=== PATIENT | female | born 1980 | race Caucasian/White ===

== ENCOUNTER 2019-08-27 09:28 | Outpatient (CLI) | payer BC ==
[2019-08-27 17:43] LABS: BASOPHILS # (AUTO) 0.1 10^3/uL (0.0-0.1); BASOPHILS % (AUTO) 1.2 %; EOSINOPHILS # (AUTO) 0.1 10^3/uL (0.0-0.7); HGB - HEMOGLOBIN 12.9 g/dL (12.0-16.0); LYMPHOCYTES # (AUTO) 1.9 10^3/uL (1.5-3.5); LYMPHOCYTES % (AUTO) 37.4 %; MEAN CORPUSCULAR HEMOGLOBIN 27.9 pg (27.0-31.0); MEAN CORPUSCULAR HGB CONC 30.5 g/dL (32.0-36.0); MEAN CORPUSCULAR VOLUME 91.6 fL (81.0-99.0); MEAN PLATELET VOLUME 12.5 fL (7.9-10.8); MONOCYTES # (AUTO) 0.3 10^3/uL (0.0-1.0); MONOCYTES % (AUTO) 6.5 %; NEUTROPHILS # (AUTO) 2.7 10^3/uL (1.5-6.6); NEUTROPHILS % (AUTO) 52.7 %; PLT - PLATELET COUNT 200 10^3/uL (130-450); RED BLOOD COUNT 4.62 10^6/uL (4.20-5.40); RED CELL DISTRIBUTION WIDTH 13.3 % (12.0-15.0); WHITE BLOOD COUNT 5.1 x10^3/uL (4.8-10.8)
[2019-08-27 18:20] LABS: % IRON SATURATION 33 % (20-50); ALBUMIN 4.5 g/dL (3.2-5.5); ALBUMIN/GLOBULIN RATIO 1.9 (1.0-2.2); ALKALINE PHOSPHATASE 41 IU/L (42-121); ALT ALANINE AMINOTRANSFERASE 15 IU/L (10-60); AST ASPARTATE AMINOTRANSFERASE 17 IU/L (10-42); BILIRUBIN,TOTAL 0.9 mg/dL (0.2-1.0); BUN - BLOOD UREA NITROGEN 12 mg/dL (6-20); CALCIUM 8.8 mg/dL (8.5-10.3); CARBON DIOXIDE - CO2 26 mmol/L (21-32); CHLORIDE 104 mmol/L (101-111); CHOL/HDL RATIO 2.4 (<4.4); CHOLESTEROL 146 mg/dL; CREATININE 0.8 mg/dL (0.4-1.0); GFR - MDRD 81 (>89); GLUCOSE 84 mg/dL (70-100); HDL CHOLESTEROL 60 mg/dL; IRON 103 ug/dL (28-170); SODIUM 141 mmol/L (135-145); TOTAL IRON BINDING CAPACITY 314 ug/dL (250-450); TOTAL PROTEIN 6.9 g/dL (6.7-8.2); TRANSFERRIN 224 mg/dL (192-382)
[2019-08-27 18:26] LABS: FERRITIN 41.6 ng/mL (11.0-306.8)
== END 2019-08-27 09:29 | disposition home or self-care (01) ==
LOC: LAB.S 09:28
PROVIDERS: ATTEND Registered Nurse
DX: Z00.00 Encounter for general adult medical examination without abnormal findings (principal); R42 Dizziness and giddiness; Z86.2 Personal history of diseases of the blood and blood-forming organs and certain disorders involving the immune mechanism
CPT/HCPCS: 36415; 80053; 80061; 82728; 83540; 83721; 84443; 84466; 85025

== ENCOUNTER 2020-02-12 10:00 | Outpatient (CLI) | payer BC | END 2020-02-12 23:59 | disposition home or self-care (01) | LOC: COV 10:00 | PROVIDERS: ATTEND Family Medicine | DX: J02.9 Acute pharyngitis, unspecified (principal); R09.81 Nasal congestion ==

== ENCOUNTER 2020-07-24 10:27 | Outpatient (CLI) | payer BC | END 2020-07-24 10:28 | disposition home or self-care (01) | LOC: COV 10:27 | PROVIDERS: ATTEND Family Medicine | DX: R05 Cough (principal); R53.83 Other fatigue; R07.0 Pain in throat; R09.81 Nasal congestion; J34.89 Other specified disorders of nose and nasal sinuses; Z20.828 Contact with and (suspected) exposure to other viral communicable diseases ==

== ENCOUNTER 2020-12-15 10:21 | Outpatient (CLI) | payer BC ==
[2020-12-15 14:28] LABS: BASOPHILS # (AUTO) 0.1 10^3/uL (0.0-0.1); EOSINOPHILS # (AUTO) 0.1 10^3/uL (0.0-0.7); EOSINOPHILS % (AUTO) 1.2 %; HGB - HEMOGLOBIN 13.6 g/dL (12.0-16.0); LYMPHOCYTES # (AUTO) 1.6 10^3/uL (1.5-3.5); LYMPHOCYTES % (AUTO) 32.7 %; MEAN CORPUSCULAR HEMOGLOBIN 29.7 pg (27.0-31.0); MEAN CORPUSCULAR HGB CONC 32.4 g/dL (32.0-36.0); MEAN CORPUSCULAR VOLUME 91.7 fL (81.0-99.0); MEAN PLATELET VOLUME 11.7 fL (7.9-10.8); MONOCYTES # (AUTO) 0.4 10^3/uL (0.0-1.0); MONOCYTES % (AUTO) 8.4 %; NEUTROPHILS # (AUTO) 2.8 10^3/uL (1.5-6.6); NEUTROPHILS % (AUTO) 56.5 %; PLT - PLATELET COUNT 197 10^3/uL (130-450); RED BLOOD COUNT 4.58 10^6/uL (4.20-5.40); RED CELL DISTRIBUTION WIDTH 12.8 % (12.0-15.0); WHITE BLOOD COUNT 4.9 x10^3/uL (4.8-10.8)
[2020-12-15 14:44] LABS: ALBUMIN 4.5 g/dL (3.2-5.5); ALBUMIN/GLOBULIN RATIO 1.7 (1.0-2.2); BILIRUBIN,TOTAL 0.8 mg/dL (0.2-1.0); CALCIUM 9.2 mg/dL (8.5-10.3); CREATININE 0.7 mg/dL (0.4-1.0); POTASSIUM 4.1 mmol/L (3.5-5.0); TOTAL PROTEIN 7.2 g/dL (6.7-8.2)
[2020-12-15 14:55] LABS: THYROID STIMULATING HORMONE 0.8 uIU/mL (0.34-5.60)
== END 2020-12-15 10:22 | disposition home or self-care (01) ==
LOC: LAB.S 10:21
PROVIDERS: ATTEND Registered Nurse
DX: R42 Dizziness and giddiness (principal); F43.21 Adjustment disorder with depressed mood; Z86.2 Personal history of diseases of the blood and blood-forming organs and certain disorders involving the immune mechanism; F32.9 Major depressive disorder, single episode, unspecified; F41.9 Anxiety disorder, unspecified
CPT/HCPCS: 36415; 80053; 82306; 82607; 84443; 85025

== ENCOUNTER 2021-01-23 08:52 | Outpatient (CLI) | payer BC ==
[2021-01-23 15:13] LABS: CHOL/HDL RATIO 2.7 (<4.4); CHOLESTEROL 194 mg/dL; HDL CHOLESTEROL 72 mg/dL; TRIGLYCERIDES 24 mg/dL
== END 2021-01-23 08:53 | disposition home or self-care (01) ==
LOC: LAB.S 08:52
PROVIDERS: ATTEND Registered Nurse
DX: Z00.00 Encounter for general adult medical examination without abnormal findings (principal)
CPT/HCPCS: 36415; 80061; 83721

== ENCOUNTER 2021-03-07 07:00 | Outpatient (CLI) | payer BC ==
[2021-03-16 13:56] LABS: METANEPHRINE 39 mcg/24 h (36-190); NORMETANEPHRINE 68 mcg/24 h (35-482); TOTAL VOLUME 2750 mL
== END 2021-03-07 23:59 | disposition home or self-care (01) ==
LOC: LAB.R 07:00
PROVIDERS: ATTEND Registered Nurse
DX: R42 Dizziness and giddiness (principal); C43.62 Malignant melanoma of left upper limb, including shoulder; F41.9 Anxiety disorder, unspecified; F32.9 Major depressive disorder, single episode, unspecified; Z86.2 Personal history of diseases of the blood and blood-forming organs and certain disorders involving the immune mechanism
CPT/HCPCS: 83835

== ENCOUNTER 2021-03-07 10:05 | Outpatient (CLI) | payer BC ==
[2021-03-07 15:40] LABS: BASOPHILS # (AUTO) 0.1 10^3/uL (0.0-0.1); BASOPHILS % (AUTO) 1.3 %; HCT - HEMATOCRIT 42.8 % (37.0-47.0); HGB - HEMOGLOBIN 13.7 g/dL (12.0-16.0); LYMPHOCYTES # (AUTO) 1.6 10^3/uL (1.5-3.5); LYMPHOCYTES % (AUTO) 40.7 %; MEAN CORPUSCULAR VOLUME 90.5 fL (81.0-99.0); MEAN PLATELET VOLUME 11.7 fL (7.9-10.8); MONOCYTES # (AUTO) 0.3 10^3/uL (0.0-1.0); MONOCYTES % (AUTO) 7.6 %; NEUTROPHILS # (AUTO) 1.9 10^3/uL (1.5-6.6); NEUTROPHILS % (AUTO) 49.1 %; PLT - PLATELET COUNT 240 10^3/uL (130-450); RED BLOOD COUNT 4.73 10^6/uL (4.20-5.40); RED CELL DISTRIBUTION WIDTH 12.8 % (12.0-15.0); WHITE BLOOD COUNT 3.8 x10^3/uL (4.8-10.8)
[2021-03-07 16:01] LABS: ALBUMIN 4.8 g/dL (3.2-5.5); ALBUMIN/GLOBULIN RATIO 2.1 (1.0-2.2); ALKALINE PHOSPHATASE 31 IU/L (42-121); ALT ALANINE AMINOTRANSFERASE 28 IU/L (10-60); AST ASPARTATE AMINOTRANSFERASE 20 IU/L (10-42); BILIRUBIN,TOTAL 0.9 mg/dL (0.2-1.0); BUN - BLOOD UREA NITROGEN 16 mg/dL (6-20); CALCIUM 9.3 mg/dL (8.5-10.3); CARBON DIOXIDE - CO2 27 mmol/L (21-32); CHLORIDE 105 mmol/L (101-111); CHOL/HDL RATIO 3.5 (<4.4); CHOLESTEROL 285 mg/dL; CREATININE 0.7 mg/dL (0.4-1.0); GFR - MDRD 94 (>89); GLUCOSE 89 mg/dL (70-100); HDL CHOLESTEROL 82 mg/dL; POTASSIUM 3.9 mmol/L (3.5-5.0); SODIUM 139 mmol/L (135-145); TOTAL PROTEIN 7.1 g/dL (6.7-8.2); TRIGLYCERIDES 26 mg/dL
[2021-03-07 16:09] LABS: THYROID STIMULATING HORMONE 0.7 uIU/mL (0.34-5.60)
[2021-03-07 16:17] LABS: FERRITIN 39.5 ng/mL (11.0-306.8)
[2021-03-07 16:31] LABS: CRP HIGH SENSITIVITY < 0.5 mg/L
[2021-03-07 16:39] LABS: FOLLICLE STIMULATING HORMONE 13.43 mIU/mL
[2021-03-07 16:42] LABS: CRP - C-REACTIVE PROTEIN < 1.0 mg/dL (0-1.0)
[2021-03-07 17:06] LABS: FOLATE > 49.60 ng/mL (5.90 - >24.8)
[2021-03-07 20:28] LABS: ESTIMATED AVERAGE GLUCOSE 100 mg/dL (70-100); HEMOGLOBIN A1c% 5.1 % (4.27-6.07)
[2021-03-10 15:36] LABS: THYROID PEROXIDASE ANTIBODIES 2 IU/mL (<9)
== END 2021-03-07 10:06 | disposition home or self-care (01) ==
LOC: LAB.S 10:05
PROVIDERS: ATTEND Registered Nurse
DX: C43.62 Malignant melanoma of left upper limb, including shoulder (principal); Z86.2 Personal history of diseases of the blood and blood-forming organs and certain disorders involving the immune mechanism; R42 Dizziness and giddiness; F41.9 Anxiety disorder, unspecified; F32.9 Major depressive disorder, single episode, unspecified
CPT/HCPCS: 36415; 80053; 80061; 81599; 82306; 82607; 82627; 82671; 82728; 82746; 83001; 83036; 83516; 83721; 84143; 84144; 84403; 84443; 84630; 84681; 85025; 86140; 86141; 86359; 86360; 86376; 86800

== ENCOUNTER 2021-05-19 09:06 | Outpatient (CLI) | payer BC | END 2021-05-19 09:07 | disposition home or self-care (01) | LOC: LAB.S 09:06 | PROVIDERS: ATTEND Registered Nurse | DX: F32.A Depression, unspecified (principal); F41.9 Anxiety disorder, unspecified; R42 Dizziness and giddiness; Z86.2 Personal history of diseases of the blood and blood-forming organs and certain disorders involving the immune mechanism; C43.62 Malignant melanoma of left upper limb, including shoulder | CPT/HCPCS: 36415; 82306; 82652 ==

== ENCOUNTER 2021-10-10 10:12 | Outpatient (CLI) | payer BC ==
[2021-10-10 17:10] LABS: CHOL/HDL RATIO 2.9 (<4.4); CHOLESTEROL 245 mg/dL; HDL CHOLESTEROL 84 mg/dL; TRIGLYCERIDES 22 mg/dL
== END 2021-10-10 10:13 | disposition home or self-care (01) ==
LOC: LAB.S 10:12
PROVIDERS: ATTEND Registered Nurse
DX: Z00.00 Encounter for general adult medical examination without abnormal findings (principal); F41.9 Anxiety disorder, unspecified; F32.A Depression, unspecified
CPT/HCPCS: 36415; 80061; 82306; 83721

== ENCOUNTER 2022-04-15 08:56 | Outpatient (CLI) | payer BC ==
--- NOTE | 2022-04-15 13:04 | Ultrasound Report ---
PROCEDURE: Abdomen Limited INDICATIONS: ABD PAIN TECHNIQUE: Real-time focused scanning was performed of the abdomen, with image documentation. COMPARISON: None FINDINGS: The liver is normal in appearance. Gallbladder is normal without evidence of cholelithiasis or gallbladder wall thickening. There is a n egative sonographic Nam's sign. Common bile duct is normal at 3 mm. Pancreas, spleen, right kidney, aorta, and the IVC are all unremarkable. The IVC is not well visualized. IMPRESSION: Unremarkable right upper quadrant ultrasound. Reviewed by: Chris Kate MD on 04/15/2022 1:03 PM PDT Approved by: Chris Kate MD on 04/15/2022 1:03 PM PDT Station ID: [id number]
== END 2022-04-15 08:57 | disposition home or self-care (01) ==
LOC: DI 08:56
PROVIDERS: ATTEND Obstetrics & Gynecology
DX: R10.9 Unspecified abdominal pain (principal)

== ENCOUNTER 2022-10-05 12:55 | Outpatient (CLI) | payer BC ==
--- NOTE | 2022-10-05 13:57 | XRAY Report ---
PROCEDURE: Thoracic Spine 2 View INDICATIONS: NECK PAIN TECHNIQUE: 2 views of the thoracic spine were acquired. COMPARISON: None. FINDINGS: Bones: No fractures or dislocations. No suspicious bony lesions. 12 pairs of ribs are noted, and a ppear intact where visualized. Very minimal early scattered disc space narrowing. Soft tissues: No paravertebral stripe thickening. IMPRESSION: Very minimal early scattered degenerative disc space narrowing. Reviewed by: Merna Villalobos MD on 10/05/2022 1:56 PM [facility] Approved by: Merna Villalobos MD on 10/05/2022 1:56 PM [facility] Station ID: [id number]
--- NOTE | 2022-10-05 16:25 | XRAY Report ---
PROCEDURE: Cervical Spine 2 View INDICATIONS: NECK PAIN TECHNIQUE: 3 view(s) of the cervical spine were acquired. COMPARISON: None. FINDINGS: Bones: No fractures or dislocations to the C7 level. Mild focal kyphosis at C4-C5. Mild multilevel disc space narrowing and endplate osteophyte formation. Facet hypertrophy throughout the mid and lowe r cervical spine. The lateral masses of C1 appear intact on the odontoid view. No suspicious bony le sions. Soft tissues: No prevertebral soft tissue swelling. IMPRESSION: 1. Mild multilevel degenerative disc and facet disease. 2. No acute fracture. No osseous lesion. If symptoms and/or clinical suspicion for pathology continue , further assessment with repeat plain films, or advanced imaging (e.g., CT, MRI, or bone scan) is re commended for further assessment. Reviewed by: Ronny Lamb MD on 10/05/2022 4:24 PM PST Approved by: Ronny Lamb MD on 10/05/2022 4:24 PM PST Station ID: [id number]
--- NOTE | 2022-10-05 16:26 | XRAY Report ---
PROCEDURE: Lumbar Spine 2 View INDICATIONS: NECK PAIN TECHNIQUE: 2 views of the lumbar spine were acquired. COMPARISON: None. FINDINGS: Bones: 5 [id number] vertebrae are present. There is mild rightward curvature of the mid/upper lumbar spine.. No vertebral body compression fractures. No suspicious bony lesions. Soft tissues: Overlying bowel gas pattern is normal. No suspicious soft tissue calcifications. IMPRESSION: No acute fracture. No osseous lesion. If symptoms and/or clinical suspicion for patholog y continue, further assessment with repeat plain films, or advanced imaging (e.g., CT, MRI, or bone s can) is recommended for further assessment. Reviewed by: Ronny Lamb MD on 10/05/2022 4:24 PM PST Approved by: Ronny Lamb MD on 10/05/2022 4:24 PM PST Station ID: [id number]
== END 2022-10-05 12:56 | disposition home or self-care (01) ==
LOC: DI 12:55
PROVIDERS: ATTEND Nurse Practitioner
DX: M47.814 Spondylosis without myelopathy or radiculopathy, thoracic region (principal); M47.812 Spondylosis without myelopathy or radiculopathy, cervical region; M50.30 Other cervical disc degeneration, unspecified cervical region

== ENCOUNTER 2023-12-24 11:10 | Outpatient (CLI) | payer BC ==
--- NOTE | 2023-12-26 10:27 | Ultrasound Report ---
PROCEDURE: Pelvic w/Transvaginal INDICATIONS: ABN VAG BLEED TECHNIQUE: Real-time scanning was performed of the pelvic organs, with image documentation. Additional endovagi nal scanning was necessary due to incomplete visualization of the adnexal and endometrial structures by transabdominal scanning. COMPARISON: Ultrasound abdomen 04/15/2022 FINDINGS: Uterus: Uterus is anteverted and normal in size at 9.1 x 4.8 x 5.9 cm. The myometrium is homogeneou s. The endometrium measures 14 mm in combined thickness. Ovaries: The right ovary measures 2.2 x 1.3 x 2.1 cm, with a calculated ovarian volume of 3.1 cc. T he left ovary measures 6.2 x 3.1 x 3.1 cm, with a calculated ovarian volume of 1.2 cc. Left ovary dem onstrates a cystic focus measuring 6.2 x 2.4 x 5.0 cm. There is a questionable appearance of slightly prominent dilated right fallopian tube. Other: No pathologic free abdominal or pelvic fluid. IMPRESSION: Prominent left ovarian cyst. Secondary to size, six-week follow-up is recommended. Questionable appearance of dilated right fallopian tube. Attention to this region on follow-up ultras ound is recommended. Reviewed by: Merna Villalobos MD on 12/26/2023 10:25 AM PDT Approved by: Merna Villalobos MD on 12/26/2023 10:25 AM PDT Station ID: [id number]
== END 2023-12-24 11:11 | disposition home or self-care (01) ==
LOC: DI 11:10
PROVIDERS: ATTEND Physician Assistant Medical
DX: N83.202 Unspecified ovarian cyst, left side (principal); N93.9 Abnormal uterine and vaginal bleeding, unspecified

== ENCOUNTER 2024-01-11 08:00 | Outpatient (CLI) | payer BC ==
[2024-01-11 18:51] LABS: BILIRUBIN,URINE NEGATIVE (NEGATIVE); GLUCOSE, URINE (UA) NEGATIVE (NEGATIVE); KETONES,URINE (UA) NEGATIVE (NEGATIVE); LEUKOCYTE ESTERASE, URINE NEGATIVE (NEGATIVE); NITRITE,URINE NEGATIVE (NEGATIVE); OCCULT BLOOD,URINE SMALL (NEGATIVE); PROTEIN,URINE NEGATIVE (NEGATIVE); UROBILINOGEN,URINE 0.2 (NORMAL) E.U./dL (NORMAL)
[2024-01-11 18:54] LABS: CLARITY,URINE CLEAR (CLEAR)
[2024-01-11 19:22] LABS: BACTERIA,URINE Moderate /HPF (None Seen); RBC,URINE 0-5 /HPF (0-5); SQUAMOUS EPITHELIAL CELL,UR FEW Squamous (<= Few)
== END 2024-01-11 23:59 | disposition home or self-care (01) ==
LOC: LAB.N 08:00
PROVIDERS: ATTEND Nurse Practitioner Family
DX: R30.0 Dysuria (principal)
CPT/HCPCS: 81001; 87086; 87181

== ENCOUNTER 2024-01-12 08:00 | Outpatient (CLI) | payer BC | END 2024-01-12 23:59 | disposition home or self-care (01) | LOC: LAB 08:00 | PROVIDERS: ATTEND Physician Assistant | DX: R30.0 Dysuria (principal) | CPT/HCPCS: 87086; 87181 ==

== ENCOUNTER 2024-01-12 19:47 | Emergency (ER) | payer BC ==
[2024-01-12 22:26] LABS: BILIRUBIN,URINE NEGATIVE (NEGATIVE); GLUCOSE, URINE (UA) NEGATIVE (NEGATIVE); KETONES,URINE (UA) NEGATIVE (NEGATIVE); LEUKOCYTE ESTERASE, URINE MODERATE (NEGATIVE); NITRITE,URINE NEGATIVE (NEGATIVE); OCCULT BLOOD,URINE SMALL (NEGATIVE); PROTEIN,URINE NEGATIVE (NEGATIVE); UROBILINOGEN,URINE 0.2 (NORMAL) E.U./dL (NORMAL)
[2024-01-12 22:31] LABS: BACTERIA,URINE Few /HPF (None Seen); CLARITY,URINE HAZY (CLEAR); SQUAMOUS EPITHELIAL CELL,UR RARE Squamous (<= Few); WBC CLUMPS,URINE PRESENT; WBC,URINE >25 /HPF (0-5)
[2024-01-12 22:32] LABS: HCG UR QUAL NEGATIVE
--- NOTE | 2024-01-12 23:16 | ED Physician Documentation ---
History of Present Illness - Stated complaint Stated Complaint: FEVER/ - Chief complaint Chief Complaint: Fever - History obtained from History obtained from: Patient - Additonal information Additional information: 43yF p/w dysuria X couple days with fever and flank pain. denies hematuria, n/v/d abdominal pain PD PAST MEDICAL HISTORY - Past Medical History Past Medical History: No Cardiovascular: None Respiratory: None Neuro: None Endocrine/Autoimmune: None GI: None CLINICAL ABSTRACTOR: None : None HEENT: None Psych: None Musculoskeletal: None Derm: None - Past Surgical History Past Surgical History: Yes /CLINICAL ABSTRACTOR: section, Tubal ligation - Present Medications Home Medications: Ambulatory Orders Medication Instructions Recorded Confirmed Ciprofloxacin HCl [Cipro] 500 mg PO BID #20 tablet 01/12/24 - Allergies Allergies/Adverse Reactions: Allergies Allergy/AdvReac Type Severity Reaction Status Date / Time Penicillins AdvReac Unknown Verified 01/12/24 22:00 - Social History Does the pt smoke?: No Smoking Status: Never smoker Does the pt drink ETOH?: No Does the pt have substance abuse?: No - Immunizations Immunizations are current?: Yes - POLST Patient has POLST: No PD ED PE NORMAL - Vitals Vital signs reviewed: Yes - General General: Alert and oriented X 3, No acute distress, Well developed/nourished - HEENT HEENT: Atraumatic, PERRL, EOMI, Moist mucous membranes, Pharynx benign - Neck Neck: Supple, no meningeal sign - Cardiac Cardiac: RRR - Respiratory Respiratory: No respiratory distress, Clear bilaterally - Abdomen Abdomen: Non tender, Non distended - Derm Derm: Normal color, Warm and dry - Extremities Extremities: No deformity - Neuro Neuro: No motor deficit, No sensory deficit - Psych Psych: Normal mood, Normal affect Results - Vitals Vitals: Vital Signs - 24 hr 01/12/24 21:09 Temperature 37.9 C Heart Rate 94 Respiratory 17 Rate Blood Pressure 115/61 O2 Saturation 100 Oxygen O2 Source Room air - Labs Labs: Laboratory Tests 01/12/24 01/12/24 22:21 22:21 Urine Color YELLOW Urine Clarity HAZY Urine pH 6.0 Ur Specific [place] 1.010 Urine Protein NEGATIVE Urine Glucose (UA) NEGATIVE Urine Ketones NEGATIVE Urine Occult Blood SMALL H Urine Nitrite NEGATIVE Urine Bilirubin NEGATIVE Urine Urobilinogen 0.2 (NORMAL) Ur Leukocyte Esterase MODERATE H Urine RBC 11-25 H Urine WBC >25 H Urine WBC Clumps PRESENT Ur Squamous Epith Cells RARE Squamous Urine Bacteria Few Urine Culture Comments INDICATED Urine HCG, Qual NEGATIVE PD Medical Decision Making - ED course ED course: 43yF p/w L flank pain , urgency, frequency X 3 days, found to have uti here in the ED. states she can't have macrobid or penicillins therefore cipro ordered. plan to f/u outpatient with pcp. return precautinos given. Departure - Departure Disposition: Home, Self Care Clinical Impression: UTI (urinary tract infection) Condition: Stable Instructions: Urinary Tract Infecs Women Prescriptions: Ciprofloxacin HCl [Cipro] 500 mg PO BID #20 tablet Comments: You were seen in the emergency department for UTI. Antibiotics sent to [facility]. Please follow-up with your primary care provider and return to the emergency department if you have any new or worsening symptoms or other concerns.
[2024-01-12 23:27] VITALS: BP 104/50; O2SAT 99
== END 2024-01-12 23:26 | disposition home or self-care (01) ==
LOC: ED 19:47
DX: N39.0 Urinary tract infection, site not specified (principal)
CPT/HCPCS: 81001; 81025; 87086; 87181; 99283

== ENCOUNTER 2024-02-17 21:09 | Outpatient (CLI) | payer BC ==
--- NOTE | 2024-02-18 20:55 | Ultrasound Report ---
PROCEDURE: Pelvic Complete INDICATIONS: AUB TECHNIQUE: Real-time transabdominal scanning was performed of the pelvic organs, with image documentation. COMPARISON: 12/24/2023 FINDINGS: Uterus: Uterus is anteverted and enlarged in size at 10.06 x 3.78 x 5.87 cm. The myometrium is hete rogeneous. The endometrium measures 6.13 mm in combined thickness. No endometrial mass or fluid. Ovaries: The right ovary measures 3.65 x 3.05 x 3.7 cm, with a calculated ovarian volume of 21.7 cc. The left ovary measures 2 x 1.3 x 2.3 cm, with a calculated ovarian volume of 3.01 cc. Previously d escribed left-sided ovarian cyst has resolved. Simple appearing right ovarian cysts are noted measure s 2.1 x 1.8 x 2.3 cm and 1.4 x 1.1 x 1.3 cm in size. Less than 12 follicles can be seen in each ovary . No adnexal masses are seen. No cystic lesions measuring greater than 3 cm. Other: No free pelvic fluid. IMPRESSION: 1. Previously noted prominent left ovarian cyst has resolved. Simple appearing small right ovarian cy sts as above. No solid-appearing ovarian lesion. 2. Enlarged uterus without endometrial mass or fluid. No discrete uterine fibroids. Reviewed by: Juan Hernandez MD on 02/18/2024 8:54 PM PDT Approved by: Juan Hernandez MD on 02/18/2024 8:54 PM PDT Station ID: [id number]
== END 2024-02-17 21:10 | disposition home or self-care (01) ==
LOC: DI 21:09
PROVIDERS: ATTEND Physician Assistant Medical
DX: Z09 Encounter for follow-up examination after completed treatment for conditions other than malignant neoplasm (principal); N93.9 Abnormal uterine and vaginal bleeding, unspecified; N83.291 Other ovarian cyst, right side; N85.2 Hypertrophy of uterus; Z87.42 Personal history of other diseases of the female genital tract